=== PATIENT | male | born 1980 | race Two or more races ===

== ENCOUNTER 2021-06-26 21:44 | Emergency (ER) | payer SELFPAY ==
[~2021-06-26] VITALS: Ht 172.7 cm; Wt 86.2 kg
[2021-06-26 22:53] LABS: Basophils # (auto) 0.1 10 ^3/uL (0-0.2); Basophils % (auto) 0.4 % (0.0-2.0); Eosinophils # (auto) 0.3 10 ^3/uL (0-0.8); Eosinophils % (auto) 2.3 % (0.0-7.0); Hemoglobin 14.7 g/dL (13.5-17.5); Lymphocytes % (auto) 15.8 % (10.0-50.0); Mean Corpuscular Hemoglobin 28.3 pg (28.0-32.0); Mean Corpuscular Hgb Conc. 33.5 g/dL (32.0-36.0); Mean Corpuscular Volume 84.6 fL (80.0-100.0); Monocytes # (auto) 0.9 10 ^3/uL (0-1.3); Monocytes % (auto) 7.1 % (0.0-12.0); Neutrophils # (auto) 9.5 10 ^3/uL (1.6-8.6); Neutrophils % (auto) 74.4 % (37.0-80.0); Red Cell Distribution Width 13.5 % (11.8-14.3); White Blood Cell 12.8 10^3/uL (4.4-10.8)
[2021-06-26 23:11] LABS: Anion Gap 5 (5-15); Blood Urea Nitrogen 13 mg/dL (7-18); Calcium 9.1 mg/dL (8.5-10.1); Carbon Dioxide 29 mmol/L (21-32); Chloride 105 mmol/L (98-107); Glucose 113 mg/dL (74-106); Potassium 3.8 mmol/L (3.5-5.1); Sodium 139 mmol/L (136-145)
[2021-06-26 23:13] LABS: Alanine Aminotransferase 27 U/L (16-61); Aspartate Aminotransferase 18 U/L (15-37); BUN/Creatinine Ratio 11.9; GFR African American 97 mL/min; GFR Non-African American 80 mL/min
[2021-06-26 23:18] LABS: Alkaline Phosphatase 72 U/L (45-117); Bilirubin, Total 0.3 mg/dL (0.2-1.0); Total Protein 8.1 g/dL (6.4-8.2)
[2021-06-27 05:00] VITALS: BP 132/78
[2021-06-27] MEDS ORDERED: FAMOTIDINE 20 MG TAB PO ONE (05:15)
[2021-06-27] MEDS ORDERED: LIDOCAINE VISCOUS 2% 15ML UD PO ONE (05:15)
[2021-06-27] MEDS ORDERED: SUCRALFATE 1 GM/10 ML ORAL SUSP PO ONE (05:15)
== END 2021-06-27 07:30 | disposition home or self-care (01) ==
LOC: ER 21:47
DX: F45.8 Other somatoform disorders (principal)
CPT/HCPCS: 36415; 71045; 80053; 84484; 85025; 85652; 86141; 93005